=== PATIENT | female | born 1955 | race African-American/Black ===

== ENCOUNTER 2016-08-30 11:31 | Emergency (ER) | payer OTHER ==
[~2016-08-30] VITALS: Ht 167.6 cm; Wt 83.9 kg
[~2016-08-30 11:31] MED LIST: AMITRIPTYLINE H10 MG ORAL; GLIPIZIDE5 MG ORAL; IBUPROFEN600 MG ORAL; NORCO 10-325 T1 EACH ORAL; NORVASC10 MG ORAL
[2016-08-30] MEDS ORDERED: Ketorolac 60mg Inj IM ONE (11:45)
[2016-08-30] MEDS ORDERED: IBUPROFEN600 MG ORAL (13:07)
--- NOTE | 2016-08-30 13:13 | Diagnostic Imaging Report ---
Indication: PAIN Technique: Spiral acquisitions obtained through the cervical spine. No IV contrast utilized. Multiplanar reconstructions were generated. Total dose length product 320 mGycm. CTDIvol(s) 15 mGy. Dose reduction achieved using automated exposure control Comparison: None Findings: Slight straightening of the normal cervical lordosis, otherwise normal bony alignment. There is mild degenerative disc narrowing at at C5-6 and C6-7. The remaining disc spaces are preserved. No acute fractures. No dislocations. At C4-5, there is slight left paracentral disc protrusion, which may impinge slightly on the left side of the cord. The neural foramina are preserved. At C5-6, there is very mild narrowing of the right neural foramen. The left neural foramen is preserved. At the remaining levels, no significant disc bulge or protrusion, spinal stenosis, or neural foraminal stenosis. Multiple surgical clips are seen in the right side of the neck the and upper mediastinum. The proximal esophagus is dilated. Impression: No acute bony trauma Slight left paracentral disc protrusion at C4-5, which may impinge slightly on the left side of the cord. Other degenerative changes, as detailed on a level by level basis above Evidence of prior neck surgery. Correlate with clinical history Dilated proximal esophagus, could be due to age-related dysmotility, but downstream obstruction not excludable. The CT scanner at [facility] is accredited by the [employer] and the scans are performed using protocols designed to limit radiation exposure to as low as reasonably achievable to attain images of sufficient resolution adequate for diagnostic evaluation.
[2016-08-30 13:18] VITALS: BP 119/81
--- NOTE | 2016-08-31 09:23 | Emergency Room Report ---
History of Present Illness General Chief Complaint: Neck Pain Source: Patient Present Illness HPI Patient is a 61-year-old female who presented after increased neck pain. Patient reported having recent fall. Patient stated she fell after her cane slipped. She reports having increased pain to her neck. She denied radiation. As reported having increased pain with range of motion. Pain is sharp in nature. She reported having a previous improvement with Toradol injections. Allergies: Coded Allergies: No Known Allergies (Unverified , 11/08/15) Patient History Past Medical History: see triage record Reviewed Nursing Documentation: PMH: Agreed, PSxH: Agreed Nursing Documentation-PMH Hx Cardiac Problems: No - CHRONIC BACK PAIN Hx Hypertension: Yes Hx Diabetes: Yes Review of Systems All Other Systems: negative except mentioned in HPI Physical Exam Vital Signs Date Time Temp Pulse Resp B/P Pulse Ox O2 Delivery O2 Flow Rate FiO2 08/30/16 11:35 97.9 100 20 124/77 99 Room Air General Appearance: well appearing, no apparent distress, alert, GCS 15, Chronically Ill Head: normocephalic, atraumatic ENT: hearing grossly normal, normal voice Neck: supple, limited range of motion, tender midline Respiratory: no respiratory distress, speaking full sentences Musculoskeletal: no calf tenderness Neurologic: normal gait Psychiatric: mood/affect normal Skin: no rash Medical Decision Making Diagnostic Impression: Primary Impression: Chronic pain ER Course Patient presented for neck pain. Differential diagnosis included vertebral artery dissection, myocardial infarction, cervical fracture, arthritis, spondylolithises. CT imaging of the cervical spine was ordered of the patient' s recent fall. A CT of the C-spine read by radiologist showed degenerative changes without evident fracture. Patient noted have multilevel degenerative changes. The patient is advised followup with her own primary care physician. Was given injection Toradol for pain with improvement. The patient is advised to return if she began having weakness or numbness or change in bowel or bladder function. Last Vital Signs Date Time Temp Pulse Resp B/P Pulse Ox O2 Delivery O2 Flow Rate FiO2 08/30/16 13:18 97.7 83 16 119/81 100 Room Air Status: improved Disposition: HOME, SELF-CARE Condition: Stable Scripts Ibuprofen* (MOTRIN*) 600 Mg Tablet 600 MG ORAL Q8H Y for For Pain, #30 TAB 0 Refills Prov: Connor Martinez 08/30/16 Patient Instructions: Chronic Pain Connor Martinez Aug 31, 2016 09:23
== END 2016-08-30 13:18 | disposition home or self-care (01) ==
LOC: EMR 12:25
DX: G89.29 Other chronic pain (principal); Z91.81 History of falling; I10 Essential (primary) hypertension; E11.9 Type 2 diabetes mellitus without complications
CPT/HCPCS: 72125; 96372; 99284